=== PATIENT | male | born 1960 | race American Indian/Alaskan Native ===

== ENCOUNTER 2018-09-24 10:34 | Emergency (ER) | payer OTHER, SELFPAY ==
[2018-09-24 10:41] VITALS: BP 149/95; PULSE 90; RESP 20; TEMP 36.7; O2SAT 99; BMI 27.8
[2018-09-24] MEDS: SODIUM CHLORIDE 0.9% 1,000 ML 1000 ML IV ×2 (10:50→13:05)
[2018-09-24 10:55] LABS: Add Manual Diff / Slide Review NO; Basophils Absolute Auto 100 /uL (0-100); Basophils Percent Auto 0.9 % (0-2); Eosinophils Absolute Auto 100 /uL (0-450); Eosinophils Percent Auto 1.2 % (2-4); Hematocrit 49.5 % (41-53); Hemoglobin 16.2 g/dL (13.5-17.5); Lymphocytes Absolute Auto 2100 /uL (1100-4500); Mean Corpuscular HGB Conc 32.8 % (30-36); Mean Corpuscular Hemoglobin 28.9 PG (26-34); Mean Corpuscular Volume 88.3 fL (80-100); Monocytes Absolute Auto 700 /uL (0-900); Monocytes Percent Auto 8.2 % (3-14); Neutrophils Absolute Auto 5000 /uL (1500-7000); Neutrophils Percent Auto 62.7 % (50-75); Platelet Count 318 X10^3/uL (150-400); Red Blood Cell Count 5.61 X10^6/uL (4.5-5.9); Red Cell Distribution Width 13.5 % (11.6-14.8); White Blood Cell Count 7.9 X10^3/uL (4.5-11.0)
[2018-09-24 11:00] LABS: Alanine Aminotransferase 89 IU/L (21-72); Albumin 4.2 g/dL (3.5-5.0); Albumin Globulin Ratio 1.4 (1.0-2.8); Alkaline Phosphatase 154 U/L (38-126); Aspartate Aminotransferase 53 IU/L (17-59); BUN Creatinine Ratio 16.7 (6-22); Bilirubin Total 0.8 mg/dL (0.2-1.3); Blood Urea Nitrogen 15 mg/dL (9-20); Calcium 9.5 mg/dL (8.4-10.2); Carbon Dioxide 26 mmol/L (22-32); Chloride 98 mmol/L (98-107); Estimated Glomerular Filt Rate > 60.0 mL/min (>60); Globulin 3.1 g/dL (1.7-4.1); HEMOLYSIS < 15 (0-50); Potassium 4.8 mmol/L (3.4-5.1); Sodium 135 mmol/L (137-145); Total Protein 7.3 g/dL (6.3-8.2)
--- NOTE | 2018-09-24 11:02 | DI.RAD.S_ITS ---
PROCEDURE: XR CHEST 2V INDICATIONS: new onset DM TECHNIQUE: 2 views of the chest were acquired. COMPARISON: None. FINDINGS: Surgical changes and devices: None. Lungs and pleura: Lungs are clear. No pleural effusions or pneumothorax. Mediastinum: Mediastinal contours are normal. Heart size is normal. Bones and chest wall: No suspicious bony abnormalities. Soft tissues appear unremarkable. IMPRESSION: No acute cardiopulmonary disease process. Dictated by: Kassy Chua MD, PhD on 09/24/2018 at 11:58 Approved by: Kassy Chua MD, PhD on 09/24/2018 at 11:59
[2018-09-24 11:14] LABS: HCO3 VBG 26 mmol/L (23-28); PO2 VBG 29 mmHg (35-45); Total CO2 VBG 27 mmol/L (24-29); pH VBG 7.32 (7.33-7.43)
[2018-09-24 11:15] LABS: Oxygen Saturation VBG 48 % (70-75)
[2018-09-24 11:21] LABS: Glucose 657 mg/dL (70-100)
--- NOTE | 2018-09-24 12:20 | PC.NURSE ---
Margarita, - friend of patient leaving for a short time, call if we need anything.
[2018-09-24 12:24] VITALS: BP 134/93; PULSE 74; RESP 18; O2SAT 98
--- NOTE | 2018-09-24 12:45 | ED.GENADULT ---
HPI - General Adult General Chief complaint: Diabetic Problem Stated complaint: SUGAR LEVELS AT 500, SENT FROM WALK IN Time Seen by Provider: 09/24/18 10:35 Source: patient and family Mode of arrival: ambulatory Limitations: no limitations History of Present Illness HPI narrative: 58-year-old male former smoker with COPD and GERD presents with his in the chief complaint generalized fatigue, excessive thirst and urination. He went to the walk-in clinic for evaluation and they did a blood glucose noting his sugar to be over 500, at which point he was sent to us in the emergency department. He denies any history of diabetes but does have trouble in his family maintaining sugars. He denies any change in his diet. He has not recently been ill with runny nose, sore throat nor fever, chills or cough. He has no abdominal pain or nausea or vomiting. He states that over past few weeks he has become fatigued, weak, sleeping more than normal and complains of excessive thirst, hunger and frequent urination. Onset (ago): week(s) Related Data Home Medications Medication Instructions Recorded Confirmed aspirin 81 mg PO DAILY 09/24/18 09/24/18 omeprazole 20 mg PO QPM 09/24/18 09/24/18 tiotropium-olodaterol [Stiolto 2 puff INHALATION DAILY 09/24/18 09/24/18 Respimat] Previous Rx's Medication Instructions Recorded metformin 500 mg PO BID #30 tab 09/24/18 Allergies Allergy/AdvReac Type Severity Reaction Status Date / Time No Known Drug Allergies Allergy Verified 09/24/18 11:33 Review of Systems Review of Systems ROS Unobtainable: All systems reviewed & are unremarkable except as noted in HPI and below Constitutional Denies chills, Denies fever(s), Denies lethargy and Reports weakness Eyes Denies change in vision, Denies eye discharge, Denies irritation and Denies loss of vision ENT Ears, Nose, Mouth, and Throat: Denies change in voice, Denies neck pain and Denies sore throat Cardiovascular Denies chest pain, Denies irregular heart rhythm, Denies lightheadedness, Denies palpitations, Denies dyspnea, Denies dyspnea on exertion and Denies orthopnea Respiratory Denies cough, Denies dyspnea, Denies dyspnea on exertion and Denies wheezing Gastrointestinal Gastrointestinal: Denies abdominal pain, Denies change in bowel habits, Denies diarrhea, Denies nausea and Denies vomiting Genitourinary Denies hematuria, Denies flank pain, Reports urinary frequency, Denies urinary incontinence and Denies urinary urgency Musculoskeletal Denies neck pain Integumentary/Breasts Denies pruritus, Denies erythema, Denies rash and Denies wounds Neurologic Denies confusion, Denies loss of vision and Reports weakness Psychiatric Denies anxiety, Denies confusion, Denies depression, Denies homicidal ideation and Denies suicidal ideation Endocrine Denies palpitations Hematologic/Lymphatic Denies easy bruising Allergic/Immunologic Denies wheezing PFSH Social History Smoking Status: Former smoker Social History Smoking Status: Former smoker Exam Narrative Exam Narrative: GENERAL: 58M appears stated age, in mild distress HEAD: Atraumatic. Normocephalic. No temporal or scalp tenderness. EYES: Pupils equal round and reactive. Extraocular motions intact. No scleral icterus. No injection or drainage. ENT: Nose without bleeding, purulent drainage or septal hematoma. Throat without erythema, tonsillar hypertrophy or exudate. Uvula midline. Airway patent. NECK: Trachea midline. No JVD or lymphadenopathy. Supple, nontender, no meningeal signs. CARDIOVASCULAR: Regular rate and rhythm without murmurs, gallops, or rubs. RESPIRATORY: Prolonged expiratory phase with decreased breath sounds B/L. No rales or rhonchi GASTROINTESTINAL: Abdomen soft, non-tender, nondistended. No hepato-splenomegaly, or palpable masses. No guarding. EXTREMITIES: No clubbing, cyanosis, or edema. No joint tenderness, effusion, or edema noted. BACK: Nontender without deformity or crepitance. No flank tenderness. NEURO: AOx3. SKIN: No rash or erythema. Initial Vital Signs Initial Vital Signs: Vital Signs Temperature 98.0 F 09/24/18 10:41 Pulse Rate 90 09/24/18 10:41 Respiratory Rate 20 09/24/18 10:41 Blood Pressure 149/95 H 09/24/18 10:41 Pulse Oximetry 99 09/24/18 10:41 Course Orders Ordered: ED Orders 09/24/18 10:45 CMP [Comprehensive Metabolic Panel] Stat Complete Blood Count AUTO DIFF Stat 09/24/18 10:56 Venous Blood Gas Stat 09/24/18 11:00 EKG-12 Lead Stat 09/24/18 11:02 XR chest 2V Stat Discontinued Medications Sodium Chloride (Normal Saline 0.9%) 1,000 mls @ 1,000 mls/hr IV BOLUS ONE Stop: 09/24/18 11:46 Last Infusion: 09/24/18 13:15 Dose: 0 mls/hr Admin: 09/24/18 10:50 Dose: 1,000 mls/hr Sodium Chloride (Normal Saline 0.9%) 1,000 mls @ 1,000 mls/hr IV BOLUS ONE Stop: 09/24/18 13:53 Last Infusion: 09/24/18 14:31 Dose: 0 mls/hr Admin: 09/24/18 13:05 Dose: 1,000 mls/hr Insulin Human Regular (Humulin R) 8 unit SUBCUT NOW ONE Stop: 09/24/18 12:55 Last Admin: 09/24/18 13:04 Dose: 8 unit Vital Signs - 8 hr 09/24/18 10:41 09/24/18 12:24 09/24/18 13:40 Temperature 98.0 F Pulse Rate 90 74 68 Respiratory Rate 20 18 16 Blood Pressure 149/95 H Blood Pressure [Left Arm] 134/93 H 131/85 Pulse Oximetry 99 98 99 Medical Decision Making Lab Data Result diagrams: 09/24/18 10:45 09/24/18 10:45 Lab Results 09/24/18 09/24/18 09/24/18 Range/Units 10:45 10:45 10:56 WBC 7.9 (4.5-11.0) X10^3/uL RBC 5.61 (4.5-5.9) X10^6/uL Hgb 16.2 (13.5-17.5) g/dL Hct 49.5 (41-53) % MCV 88.3 (80-100) fL MCH 28.9 (26-34) PG MCHC 32.8 (30-36) % RDW 13.5 (11.6-14.8) % Plt Count 318 (150-400) X10^3/uL Neut % (Auto) 62.7 (50-75) % Lymph % (Auto) 27.0 (25-40) % [place] % (Auto) 8.2 (3-14) % Eos % (Auto) 1.2 L (2-4) % Baso % (Auto) 0.9 (0-2) % Neut # (Auto) 5000 (2380-1249) /uL Lymph # (Auto) 2100 (7799-8995) /uL [place] # (Auto) 700 (0-900) /uL Eos # (Auto) 100 (0-450) /uL Baso # (Auto) 100 (0-100) /uL VBG pH 7.32 L (7.33-7.43) VBG pCO2 50.0 (45-50) mmHg VBG pO2 29 L (35-45) mmHg VBG HCO3 26 (23-28) mmol/L VBG Total CO2 27 (24-29) mmol/L VBG O2 Saturation 48 L (70-75) % VBG Base Excess 0.0 (0-4) mmol/L Sodium 135 L (137-145) mmol/L Potassium 4.8 (3.4-5.1) mmol/L Chloride 98 (98-107) mmol/L Carbon Dioxide 26 (22-32) mmol/L BUN 15 (9-20) mg/dL Creatinine 0.90 (0.66-1.25) mg/dL Estimated GFR > 60.0 (>60) mL/min BUN/Creatinine Ratio 16.7 (6-22) Glucose 657 H* (70-100) mg/dL Calcium 9.5 (8.4-10.2) mg/dL Total Bilirubin 0.8 (0.2-1.3) mg/dL AST 53 (17-59) IU/L ALT 89 H (21-72) IU/L Alkaline Phosphatase 154 H (38-126) U/L Total Protein 7.3 (6.3-8.2) g/dL Albumin 4.2 (3.5-5.0) g/dL Globulin 3.1 (1.7-4.1) g/dL Albumin/Globulin Ratio 1.4 (1.0-2.8) Point of Care Testing Glucose POC 431 Urine Dip Bedside Urine Glucose 1000 mg/dl Bedside Urine Bilirubin - Negative Bedside Urine Ketone - Negative Urine Specific [place] 1.015 Bedside Urine Occult Blood - Negative Bedside Urine pH 7.0 Bedside Urine Protein - Negative Bedside Urine Urobilinogen - Negative Bedside Urine Nitrite - Negative Bedside Urine Leukocytes - Negative Esterase Point of care testing: Point of Care Testing Glucose POC 431 Urine Dip Bedside Urine Glucose 1000 mg/dl Bedside Urine Bilirubin - Negative Bedside Urine Ketone - Negative Urine Specific [place] 1.015 Bedside Urine Occult Blood - Negative Bedside Urine pH 7.0 Bedside Urine Protein - Negative Bedside Urine Urobilinogen - Negative Bedside Urine Nitrite - Negative Bedside Urine Leukocytes - Negative Esterase Imaging Data Chest x-ray: Radiologist's impression: Wilfred Pradon 58 M [address] [address] XRay Report Signed Patient: Wilfred Prado DeanMR#: [id number] : 2Acct:[id number] Age/Sex: 58 / MDate of Service: 09/24/18 Loc: ED Accession Number: [id number] Procedure: XR chest 2V Ordering Provider: Farhad Yee D.O. PROCEDURE: XR CHEST 2V INDICATIONS: new onset DM TECHNIQUE: 2 views of the chest were acquired. COMPARISON: None. FINDINGS: Surgical changes and devices: None. Lungs and pleura: Lungs are clear. No pleural effusions or pneumothorax. Mediastinum: Mediastinal contours are normal. Heart size is normal. Bones and chest wall: No suspicious bony abnormalities. Soft tissues appear unremarkable. IMPRESSION: No acute cardiopulmonary disease process. Dictated by: Kassy Chua MD, PhD on 09/24/2018 at 11:58 Approved by: Kassy Chua MD, PhD on 09/24/2018 at 11:59 MDM Narrative Medical decision making narrative: Patient appears to have initial presentation diabetes. Given his age and lack acidosis and body habitus is exceedingly unlikely to be a type 1 diabetes. Type 2 diabetes runs in his family. After extensive discussion the patient continues to refuse admission despite discussion of risks and benefits including becoming significantly ill, progressing even to . He has full capacity and understands the risks. He will allow us to give him a few bags of fluid, initiate hyperglycemic therapy and forward records to his provider in [place]. Patient and his are very clear that my strong recommendation is to stay. I offered to call other family members or friends whom may be helpful in convincing to stay. He stays the course. He understands that he may come back immediately for a change of heart Discharge Plan Departure Patient Disposition: Home Clinical Impression: Diabetes mellitus Qualifiers: Diabetes mellitus type: type 2 Diabetes mellitus joint terminal attack controller insulin use: without joint terminal attack controller use Diabetes mellitus complication status: with other specified complication Qualified Code(s): E11.69 - Type 2 diabetes mellitus with other specified complication Instructions: DI for Diabetes Type 2 Activity Restrictions/Additional Instructions: *You have been diagnosed with [1st presentation of diabetes] *What to do: *Take medications as directed *Follow up with your primary care provider as soon as possible, call for an appointment. Let them know you were seen in the Emergency Department and that we ask that you be seen in follow up *Return to the Emergency Department immediately if you should have any new, worsening or concerning symptoms, or even if you merely change your mind about our suggestion to admit Prescriptions: New metformin 500 mg tablet 500 mg PO BID Qty: 30 RF: 0 No Action aspirin 81 mg Tablet,Delayed Release (Dr/Ec) 81 mg PO DAILY RF: 0 omeprazole 20 mg Capsule,Delayed Release(Dr/Ec) 20 mg PO QPM RF: 0 Stiolto Respimat 2.5-2.5 mcg/actuation mist 2 puff inhalation DAILY RF: 0
[2018-09-24] MEDS: INSULIN REGULAR 100 UNIT/ML 3 ML VIAL 8 UNIT SUBCUT (13:04)
--- NOTE | 2018-09-24 13:09 | ED_ITS ---
HPI - General Adult General Chief complaint: Diabetic Problem Stated complaint: SUGAR LEVELS AT 500, SENT FROM WALK IN Time Seen by Provider: 09/24/18 10:35 Source: patient and family Mode of arrival: ambulatory Limitations: no limitations History of Present Illness HPI narrative: 58-year-old male former smoker with COPD and GERD presents with his in the chief complaint generalized fatigue, excessive thirst and urination. He went to the walk-in clinic for evaluation and they did a blood glucose noting his sugar to be over 500, at which point he was sent to us in the emergency department. He denies any history of diabetes but does have trouble in his family maintaining sugars. He denies any change in his diet. He has not recently been ill with runny nose, sore throat nor fever, chills or cough. He has no abdominal pain or nausea or vomiting. He states that over past few weeks he has become fatigued, weak, sleeping more than normal and complains of excessive thirst, hunger and frequent urination. Onset (ago): week(s) Related Data Home Medications Medication Instructions Recorded Confirmed aspirin 81 mg PO DAILY 09/24/18 09/24/18 omeprazole 20 mg PO QPM 09/24/18 09/24/18 tiotropium-olodaterol [Stiolto 2 puff INHALATION DAILY 09/24/18 09/24/18 Respimat] Previous Rx's Medication Instructions Recorded metformin 500 mg PO BID #30 tab 09/24/18 Allergies Allergy/AdvReac Type Severity Reaction Status Date / Time No Known Drug Allergies Allergy Verified 09/24/18 11:33 Review of Systems Review of Systems ROS Unobtainable: All systems reviewed & are unremarkable except as noted in HPI and below Constitutional Denies chills, Denies fever(s), Denies lethargy and Reports weakness Eyes Denies change in vision, Denies eye discharge, Denies irritation and Denies loss of vision ENT Ears, Nose, Mouth, and Throat: Denies change in voice, Denies neck pain and Denies sore throat Cardiovascular Denies chest pain, Denies irregular heart rhythm, Denies lightheadedness, Denies palpitations, Denies dyspnea, Denies dyspnea on exertion and Denies orthopnea Respiratory Denies cough, Denies dyspnea, Denies dyspnea on exertion and Denies wheezing Gastrointestinal Gastrointestinal: Denies abdominal pain, Denies change in bowel habits, Denies diarrhea, Denies nausea and Denies vomiting Genitourinary Denies hematuria, Denies flank pain, Reports urinary frequency, Denies urinary i ncontinence and Denies urinary urgency Musculoskeletal Denies neck pain Integumentary/Breasts Denies pruritus, Denies erythema, Denies rash and Denies wounds Neurologic Denies confusion, Denies loss of vision and Reports weakness Psychiatric Denies anxiety, Denies confusion, Denies depression, Denies homicidal ideation and Denies suicidal ideation Endocrine Denies palpitations Hematologic/Lymphatic Denies easy bruising Allergic/Immunologic Denies wheezing PFSH Social History Smoking Status: Former smoker Social History Smoking Status: Former smoker Exam Narrative Exam Narrative: GENERAL: 58M appears stated age, in mild distress HEAD: Atraumatic. Normocephalic. No temporal or scalp tenderness. EYES: Pupils equal round and reactive. Extraocular motions intact. No scleral icterus. No injection or drainage. ENT: Nose without bleeding, purulent drainage or septal hematoma. Throat without erythema, tonsillar hypertrophy or exudate. Uvula midline. Airway patent. NECK: Trachea midline. No JVD or lymphadenopathy. Supple, nontender, no meningeal signs. CARDIOVASCULAR: Regular rate and rhythm without murmurs, gallops, or rubs. RESPIRATORY: Prolonged expiratory phase with decreased breath sounds B/L. No rales or rhonchi GASTROINTESTINAL: Abdomen soft, non-tender, nondistended. No hepato- splenomegaly, or palpable masses. No guarding. EXTREMITIES: No clubbing, cyanosis, or edema. No joint tenderness, effusion, or edema noted. BACK: Nontender without deformity or crepitance. No flank tenderness. NEURO: AOx3. SKIN: No rash or erythema. Initial Vital Signs Initial Vital Signs: Vital Signs Temperature 98.0 F 09/24/18 10:41 Pulse Rate 90 09/24/18 10:41 Respiratory Rate 20 09/24/18 10:41 Blood Pressure 149/95 H 09/24/18 10:41 Pulse Oximetry 99 09/24/18 10:41 Course Orders Ordered: ED Orders 09/24/18 10:45 CMP [Comprehensive Metabolic Panel] Stat Complete Blood Count AUTO DIFF Stat 09/24/18 10:56 Venous Blood Gas Stat 09/24/18 11:00 EKG-12 Lead Stat 09/24/18 11:02 XR chest 2V Stat Discontinued Medications Sodium Chloride (Normal Saline 0.9%) 1,000 mls @ 1,000 mls/hr IV BOLUS ONE Stop: 09/24/18 11:46 Last Infusion: 09/24/18 13:15 Dose: 0 mls/hr Admin: 09/24/18 10:50 Dose: 1,000 mls/hr Sodium Chloride (Normal Saline 0.9%) 1,000 mls @ 1,000 mls/hr IV BOLUS ONE Stop: 09/24/18 13:53 Last Infusion: 09/24/18 14:31 Dose: 0 mls/hr Admin: 09/24/18 13:05 Dose: 1,000 mls/hr Insulin Human Regular (Humulin R) 8 unit SUBCUT NOW ONE Stop: 09/24/18 12:55 Last Admin: 09/24/18 13:04 Dose: 8 unit Vital Signs - 8 hr 09/24/18 10:41 09/24/18 12:24 09/24/18 13:40 Temperature 98.0 F Pulse Rate 90 74 68 Respiratory Rate 20 18 16 Blood Pressure 149/95 H Blood Pressure [Left Arm] 134/93 H 131/85 Pulse Oximetry 99 98 99 Medical Decision Making Lab Data Result diagrams: 09/24/18 10:45 09/24/18 10:45 Lab Results 09/24/18 09/24/18 09/24/18 Range/Units 10:45 10:45 10:56 WBC 7.9 (4.5-11.0) X10^3/uL RBC 5.61 (4.5-5.9) X10^6/uL Hgb 16.2 (13.5-17.5) g/dL Hct 49.5 (41-53) % MCV 88.3 (80-100) fL MCH 28.9 (26-34) PG MCHC 32.8 (30-36) % RDW 13.5 (11.6-14.8) % Plt Count 318 (150-400) X10^3/uL Neut % (Auto) 62.7 (50-75) % Lymph % (Auto) 27.0 (25-40) % [place] % (Auto) 8.2 (3-14) % Eos % (Auto) 1.2 L (2-4) % Baso % (Auto) 0.9 (0-2) % Neut # (Auto) 5000 (1809-6619) /uL Lymph # (Auto) 2100 (9420-9514) /uL [place] # (Auto) 700 (0-900) /uL Eos # (Auto) 100 (0-450) /uL Baso # (Auto) 100 (0-100) /uL VBG pH 7.32 L (7.33-7.43) VBG pCO2 50.0 (45-50) mmHg VBG pO2 29 L (35-45) mmHg VBG HCO3 26 (23-28) mmol/L VBG Total CO2 27 (24-29) mmol/L VBG O2 Saturation 48 L (70-75) % VBG Base Excess 0.0 (0-4) mmol/L Sodium 135 L (137-145) mmol/L Potassium 4.8 (3.4-5.1) mmol/L Chloride 98 (98-107) mmol/L Carbon Dioxide 26 (22-32) mmol/L BUN 15 (9-20) mg/dL Creatinine 0.90 (0.66-1.25) mg/dL Estimated GFR > 60.0 (>60) mL/min BUN/Creatinine Ratio 16.7 (6-22) Glucose 657 H* (70-100) mg/dL Calcium 9.5 (8.4-10.2) mg/dL Total Bilirubin 0.8 (0.2-1.3) mg/dL AST 53 (17-59) IU/L ALT 89 H (21-72) IU/L Alkaline Phosphatase 154 H (38-126) U/L Total Protein 7.3 (6.3-8.2) g/dL Albumin 4.2 (3.5-5.0) g/dL Globulin 3.1 (1.7-4.1) g/dL Albumin/Globulin Ratio 1.4 (1.0-2.8) Point of Care Testing Glucose POC 431 Urine Dip Bedside Urine Glucose 1000 mg/dl Bedside Urine Bilirubin - Negative Bedside Urine Ketone - Negative Urine Specific [place] 1.015 Bedside Urine Occult Blood - Negative Bedside Urine pH 7.0 Bedside Urine Protein - Negative Bedside Urine Urobilinogen - Negative Bedside Urine Nitrite - Negative Bedside Urine Leukocytes - Negative Esterase Point of care testing: Point of Care Testing Glucose POC 431 Urine Dip Bedside Urine Glucose 1000 mg/dl Bedside Urine Bilirubin - Negative Bedside Urine Ketone - Negative Urine Specific [place] 1.015 Bedside Urine Occult Blood - Negative Bedside Urine pH 7.0 Bedside Urine Protein - Negative Bedside Urine Urobilinogen - Negative Bedside Urine Nitrite - Negative Bedside Urine Leukocytes - Negative Esterase Imaging Data Chest x-ray: Radiologist's impression: Wilfred Prado Vicente 58 M [address] [address] XRay Report Signed Patient: Wilfred Prado DeanMR#: [id number] : 2Acct:[id number] Age/Sex: 58 / MDate of Service: 09/24/18 Loc: ED Accession Number: [id number] Procedure: XR chest 2V Ordering Provider: Farhad Yee D.O. PROCEDURE: XR CHEST 2V INDICATIONS: new onset DM TECHNIQUE: 2 views of the chest were acquired. COMPARISON: None. FINDINGS: Surgical changes and devices: None. Lungs and pleura: Lungs are clear. No pleural effusions or pneumothorax. Mediastinum: Mediastinal contours are normal. Heart size is normal. Bones and chest wall: No suspicious bony abnormalities. Soft tissues appear unremarkable. IMPRESSION: No acute cardiopulmonary disease process. Dictated by: Kassy Chua MD, PhD on 09/24/2018 at 11:58 Approved by: Kassy Chua MD, PhD on 09/24/2018 at 11:59 [facility] Narrative Medical decision making narrative: Patient appears to have initial presentation diabetes. Given his age and lack acidosis and body habitus is exceedingly unlikely to be a type 1 diabetes. Type 2 diabetes runs in his family. After extensive discussion the patient continues to refuse admission despite discussion of risks and benefits including becoming significantly ill, progressing even to . He has full capacity and understands the risks. He will allow us to give him a few bags of fluid, initiate hyperglycemic therapy and forward records to his provider in [place]. Patient and his are very clear that my strong recommendation is to stay. I offered to call other family members or friends whom may be helpful in convincing to stay. He stays the course. He understands that he may come back immediately for a change of heart Discharge Plan Departure Patient Disposition: Home Clinical Impression: Diabetes mellitus Qualifiers: Diabetes mellitus type: type 2 Diabetes mellitus correction insulin use: without marine oil terminal superintendent use Diabetes mellitus complication status: with other specified complication Qualified Code(s): E11.69 - Type 2 diabetes mellitus with other specified complication Instructions: DI for Diabetes Type 2 Activity Restrictions/Additional Instructions: *You have been diagnosed with [1st presentation of diabetes] *What to do: *Take medications as directed *Follow up with your primary care provider as soon as possible, call for an appointment. Let them know you were seen in the Emergency Department and that we ask that you be seen in follow up *Return to the Emergency Department immediately if you should have any new, worsening or concerning symptoms, or even if you merely change your mind about our suggestion to admit Prescriptions: New metformin 500 mg tablet 500 mg PO BID Qty: 30 RF: 0 No Action aspirin 81 mg Tablet,Delayed Release (Dr/Ec) 81 mg PO DAILY RF: 0 omeprazole 20 mg Capsule,Delayed Release(Dr/Ec) 20 mg PO QPM RF: 0 Stiolto Respimat 2.5-2.5 mcg/actuation mist 2 puff inhalation DAILY RF: 0
[2018-09-24 13:40] VITALS: BP 131/85; PULSE 68; RESP 16; O2SAT 99
== END 2018-09-24 15:09 | disposition home or self-care (01) ==
PROVIDERS: Emergency Provider Emergency Medicine
DX: E11.69 Type 2 diabetes mellitus with other specified complication (principal); R53.83 Other fatigue; R03.0 Elevated blood-pressure reading, without diagnosis of hypertension
CPT/HCPCS: 36591; 71046; 80053; 81003; 82805; 82962; 85025; 93005; 93041; 96360; 96361; 96372; 99284; 99285